=== PATIENT | male | born 1965 | race Caucasian/White ===

== ENCOUNTER 2021-09-23 12:21 | Observation (INO) ==
[2021-09-23] MEDS ORDERED: Ondansetron 4 MG/2 ML VIAL IVP PRN (13:56)
[2021-09-23] MEDS ORDERED: Naloxone 0.4 MG/ML INJ IVP PRN (13:56)
[2021-09-23] MEDS ORDERED: Perflutren Lipid Microsphere 1.3 ML in 0.9 % Sodium Chloride 8.7 ML IVP PRN (13:59)
[2021-09-23] MEDS ORDERED: *HR* FentaNYL (PF) 100 MCG/2 ML VIAL IVP ONE (14:11)
[2021-09-23] MEDS ORDERED: *HR* Dextrose 50 % in Water (Syg) 50 ML SYRINGE IVP PRN (14:24)
[2021-09-23] MEDS ORDERED: Dextrose 4 GM Chewable Tablets PO PRN ×2 (14:24)
[2021-09-23] MEDS ORDERED: D5% in Water 1,000 ML IVC PRN (14:24)
[2021-09-23] MEDS ORDERED: Morphine Sulfate 2 MG/ML SYRINGE IVP PRN (14:41)
[2021-09-23 15:39] LABS: BUN/Creatinine Ratio 20 (6-26); Blood Urea Nitrogen 19 mg/dL (6-20); Calcium 9.3 mg/dL (8.6-10.3); Carbon Dioxide 29 mEq/L (23-29); Chloride 104 mEq/L (98-107); Glucose 95 mg/dL (70-105); Osmolality,Calculated 288 (280-300); Potassium 4.4 mEq/L (3.5-5.1); Sodium 138 mEq/L (136-145); eGFR For African Americans > 60 (> 60); eGFR For Non-African Americans > 60 (> 60)
[2021-09-23] MEDS: Insulin LISPRO 300 UNITS/3 ML VIAL SUBQ SCH (17:43)
[2021-09-24 05:38] LABS: Basophils # 0.1 K/mcL (0.0-0.2); Basophils % 1.2 %; Eosinophils # 0.7 K/mcL (0.0-0.6); Eosinophils % 6.8 %; Hematocrit 45.9 % (37.5-50.1); Hemoglobin 15.5 g/dL (12.9-16.9); Immature Granulocytes % 0.4 % (0-4); Lymphocytes # 3.3 K/mcL (0.6-4.6); Lymphocytes % 34.1 %; Mean Corpuscular HGB Conc 33.8 g/dL (31.6-35.5); Mean Corpuscular Hemoglobin 29.7 pg (28.0-33.3); Mean Corpuscular Volume 87.9 fL (83.0-100.0); Mean Platelet Volume 10.8 fL (9.4-12.4); Monocytes # 0.8 K/mcL (0.0-1.3); Monocytes % 8.4 %; Neutrophils # 4.8 K/mcL (1.6-8.9); Platelet Count 181 K/mcL (140-400); Red Blood Count 5.22 M/mcL (4.19-5.50); Red Cell Distribution Width 14.7 % (11.5-14.5); Segmented Neutrophils % 49.1 %; White Blood Count 9.7 K/mcL (4.3-11.1)
[2021-09-24 06:00] LABS: BUN/Creatinine Ratio 20 (6-26); Blood Urea Nitrogen 20 mg/dL (6-20); Carbon Dioxide 27 mEq/L (23-29); Chloride 104 mEq/L (98-107); Glucose 105 mg/dL (70-105); Osmolality,Calculated 287 (280-300); Potassium 4.7 mEq/L (3.5-5.1); Sodium 137 mEq/L (136-145); eGFR For African Americans > 60 (> 60); eGFR For Non-African Americans > 60 (> 60)
[2021-09-24] MEDS: Insulin LISPRO 300 UNITS/3 ML VIAL SUBQ SCH ×3 (07:41→17:45)
[2021-09-24] MEDS: Aspirin Enteric Coated 81 MG Tablet PO SCH (07:47)
[2021-09-24] MEDS ORDERED: Nitroglycerin 1,000 MCG/5 ML VIAL IV ONE (14:10)
[2021-09-24] MEDS ORDERED: *HR* Heparin 10,000 UNIT/10 ML VIAL ONE ×2 (14:10→14:57)
[2021-09-24] MEDS ORDERED: Heparin 1,000 UNITS/500 mL 500 ML ONE (14:10)
[2021-09-24] MEDS ORDERED: 0.9 % Sodium Chloride 2,000 ML ONE (14:10)
[2021-09-24] MEDS ORDERED: ISOVUE-370 200 ML INFUS..BTL ONE (14:10)
[2021-09-24] MEDS ORDERED: *HR* FentaNYL (PF) 100 MCG/2 ML VIAL ONE (14:32)
[2021-09-24] MEDS ORDERED: *HR* Midazolam HCl 2 MG/2 ML VIAL ONE (14:33)
[2021-09-24] MEDS: allopurinoL 100 MG TABLET PO SCH (20:49)
[2021-09-24] MEDS ORDERED: rOPINIRole 1 MG TABLET PO SCH (21:00)
[2021-09-25] MEDS: Aspirin Enteric Coated 81 MG Tablet PO SCH (08:51)
[2021-09-25] MEDS: allopurinoL 100 MG TABLET PO SCH (08:51)
[2021-09-25] MEDS: Insulin LISPRO 300 UNITS/3 ML VIAL SUBQ SCH (08:54)
[2021-09-25 08:57] LABS: Basophils # 0.1 K/mcL (0.0-0.2); Basophils % 1.3 %; Eosinophils # 0.5 K/mcL (0.0-0.6); Hematocrit 49.9 % (37.5-50.1); Hemoglobin 16.7 g/dL (12.9-16.9); Immature Granulocytes % 0.4 % (0-4); Lymphocytes # 1.8 K/mcL (0.6-4.6); Lymphocytes % 21.1 %; Mean Corpuscular HGB Conc 33.5 g/dL (31.6-35.5); Mean Corpuscular Hemoglobin 28.9 pg (28.0-33.3); Mean Corpuscular Volume 86.5 fL (83.0-100.0); Mean Platelet Volume 10.3 fL (9.4-12.4); Monocytes # 0.6 K/mcL (0.0-1.3); Monocytes % 7.2 %; Neutrophils # 5.3 K/mcL (1.6-8.9); Platelet Count 188 K/mcL (140-400); Red Blood Count 5.77 M/mcL (4.19-5.50); Red Cell Distribution Width 14.5 % (11.5-14.5); White Blood Count 8.3 K/mcL (4.3-11.1)
[2021-09-25] MEDS ORDERED: Cholecalciferol (D-3) 1,000 UNIT (25MCG) TABLET PO SCH (09:00)
[2021-09-25] MEDS ORDERED: lisinopriL 10 MG TABLET PO SCH (09:00)
[2021-09-25] MEDS ORDERED: Metoprolol XL (24 HR) Succ 50 MG TAB.ER.24H PO SCH (09:00)
[2021-09-25 09:45] LABS: BUN/Creatinine Ratio 20 (6-26); Blood Urea Nitrogen 19 mg/dL (6-20); Calcium 9.2 mg/dL (8.6-10.3); Carbon Dioxide 26 mEq/L (23-29); Chloride 106 mEq/L (98-107); Glucose 134 mg/dL (70-105); Osmolality,Calculated 290 (280-300); Potassium 4.3 mEq/L (3.5-5.1); Sodium 138 mEq/L (136-145); eGFR For African Americans > 60 (> 60); eGFR For Non-African Americans > 60 (> 60)
[2021-09-25 12:01] VITALS: BP 117/64; PULSE 53; TEMP 98.7; O2SAT 92
== END 2021-09-25 13:11 | disposition home or self-care (01) ==
LOC: EMEROOARM 12:21 → 3BNU 12:21 → SUATTDRO 13:53 → 3BNU 14:35
PROVIDERS: ADMIT Family Medicine; ATTEND Family Medicine